=== PATIENT | male | born 1955 | race Caucasian/White ===

== ENCOUNTER 2017-05-01 14:59 | Emergency (ER) | payer OTHER, MEDICARE ==
[~2017-05-01] VITALS: Ht 175.3 cm; Wt 110.2 kg
[2017-05-01 15:08] VITALS: BP 137/92
--- NOTE | 2017-05-01 16:00 | RADIOLOGY REPORT ---
EXAMINATION: XR CHEST CLINICAL INFORMATION: Productive cough for one month. COMPARISON: Chest x-ray 07/02/2013. PET/CT exam of 11/21/2016 TECHNIQUE: 2 views of the chest were obtained. FINDINGS: No acute abnormality. No pulmonary vascular congestion. No infiltrate or pleural effusion. Heart size is normal. Cardiomediastinal contours are normal. There is no pleural effusion. Multilevel degenerative spondylosis of dorsal spine. IMPRESSION: No acute abnormality of the chest.
--- NOTE | 2017-05-01 19:09 | ED INFLUENZA/URI COMPLAINT ---
History of Present Illness General Chief Complaint: Upper Respiratory Sx/Fever Stated Complaint: URI Source: patient Exam Limitations: no limitations Vital Signs & Intake/Output Vital Signs & Intake/Output Vital Signs Date Time Temp Pulse Resp B/P B/P Pulse O2 O2 Flow FiO2 Mean Ox Delivery Rate 05/01 1508 97.1 96 18 137/92 94 Room Air Allergies Coded Allergies: MDX - Prednisone (PREDNISONE) (Intermediate, "CRAZY/ANXIOUS" 05/28/12) MDX - Cat Hair Extract (Cat Hair Extract) (CATS 05/28/12) Reconcile Medications Codeine Phosphate/Guaifenesi (Cheratussin AC Syrup) 10 MG-100 MG/5 ML LIQUID 5 ML PO BID PRN COUGH Triage Note: PT TO ER C/C INTERMITTENT PRODUCTIVE COUGH X 3 MONTHS. DENIES C/P. AFEBRILE Triage Nurses Notes Reviewed? yes Onset: Gradual Duration: week(s): Timing: recent history Severity: moderate HPI: 62yo male with hx of lymphoma presents to ED complaining of cough, congestion, URI symptoms x 3 months. Patient reports that cough is intermittently productive of clear/yellow sputum. Patient reports that sometimes she has coughing fits, these coughing fits keep him up at night. Patient also notes intermittent dyspnea, worse with exertion. Patient reports daily prophylactic antibiotic use for the past several months however does not know the name of his abx. The patient denies recent changes in weight, night sweats, fevers, abdominal pain, chest pain, nausea, vomiting, diarrhea, chills. (Kalpana Melton) Past History Travel History Traveled to [place] past 21 day No Medical History Any Pertinent Medical History? see below for history Cardiovascular: hypertension Gastrointestinal: peptic ulcer disease Musculoskeletal: BACK PAIN Cancer(s): non-hodgkin lymphoma Pneumonia Vaccine: 04/20/10 Influenza Vaccine: 04/20/11 Surgical History Surgical History: non-contributory Psychosocial History Who do you live with Spouse Services at Home None What is your primary language Pakistani Tobacco Use: Never used Family History Hx Contributory? No (Kalpana Melton) Review of Systems Review of Systems Constitutional: Reports: no symptoms. EENTM: Reports: see HPI. Respiratory: Reports: see HPI. Cardiovascular: Reports: no symptoms. GI: Reports: no symptoms. Genitourinary: Reports: no symptoms. Musculoskeletal: Reports: no symptoms. Skin: Reports: no symptoms. Neurological/Psychological: Reports: no symptoms. Hematologic/Endocrine: Reports: no symptoms. Immunologic/Allergic: Reports: no symptoms. All Other Systems: Reviewed and Negative (Kalpana Melton) Physical Exam Physical Exam General Appearance: well developed/nourished, no apparent distress, alert, awake Head: atraumatic, normal appearance Eyes: Bilateral: normal appearance. Ears, Nose, Throat: normal ENT inspection, moist mucous membrane, hearing grossly normal, pharynx normal Neck: normal inspection, supple, full range of motion Respiratory: normal breath sounds, no respiratory distress, lungs clear Cardiovascular: regular rate/rhythm Back: normal inspection, normal range of motion Extremities: normal inspection, normal range of motion Neurologic/Psych: awake, alert, oriented x 3 Skin: intact, normal color, warm/dry Core Measures Sepsis Present: No Sepsis Focused Exam Completed? No (Kalpana Melton) Progress Differential Diagnosis: influenza, neutropenia, otitis, pneumonia, pharyngitis, sinusitis, bronchitis Plan of Care: Patient's chest x-ray is within normal limits, these findings were discussed with the patient. The patient is upset about 2 hour wait time and that he was seen and evaluated in the hallway. Patient was offered blood work for further evaluation however he declines at this time. Patient reports that his pharmacist sent him here to the hospital to receive Rocephin. The patient was informed it was not recommended to give him IV or IM antibiotics without first obtaining labs for further assessment. Patient states he does not want to wait any longer and will go home without further workup. His physical exam is benign , breath sounds clear bilaterally, no physical exam findings to suggest acute infection, vital signs are stable. It was recommended the patient follow up with his primary care physician as well as his cancer specialist. Steroids were offered however patient declines as steroids "make him crazy". Patient left the ED prior to receiving discharge paperwork. Diagnostic Imaging: Viewed by Me: Radiology Read. Discussed w/RAD: Radiology Read. Radiology Impression: PATIENT: FREDDY VIZCARRA PRESENT AGE: 62 PATIENT ACCOUNT NO: [id number] : 53 LOCATION: [facility] ORDERING PHYSICIAN: Casper Wallace DO (TBS) SERVICE DATE: 05/01/17 EXAM TYPE: RAD - XRY-CHEST XRAY, TWO VIEWS EXAMINATION: XR CHEST CLINICAL INFORMATION : Productive cough for one month. COMPARISON: Chest x-ray 07/02/2013. PET/CT exam of 11/21/2016 TECHNIQUE: 2 views of the chest were obtained. FINDINGS: No acute abnormality. No pulmonary vascular congestion. No infiltrate or pleural effusion. Heart size is normal. Cardiomediastinal contours are normal. There is no pleural effusion. Multilevel degenerative spondylosis of dorsal spine. IMPRESSION: No acute abnormality of the chest. DICTATED BY: Ruel Mi MD DATE /TIME DICTATED:05/01/171550 LOCK TENDER:LORIE DATE/TIME TRANSCRIBED: 05/01/171550 CONFIDENTIAL, DO NOT COPY WITHOUT APPROPRIATE AUTHORIZATION. < Electronically signed in Other Vendor System> SIGNED BY: Ruel Mi MD 1599 Initial ED EKG: none (Magda GARAY,Kalpaan Calles) Departure Departure Disposition: HOME OR SELF CARE Condition: Stable Clinical Impression Primary Impression: Viral upper respiratory illness Secondary Impressions: Cough, Nasal congestion Referrals: Rod Bro MD (PCP/Family) Additional Instructions: Take cough suppressant as prescribed. Continue antibiotics as prescribed by her specialist. Follow-up with your primary care doctor in your specialist this week. Return to the emergency Department with any worsening symptoms or other concerns. Please note that there might be incidental findings in your evaluation that are unrelated to the current emergency department visit. Please notify your primary care doctor about this emergency department visit in order to obtain and review all of the testing performed so that these incidental findings can be monitored as needed. If you had an x-ray performed, please understand that some fractures may not be seen on the initial set of x-rays. If your symptoms persist you might need a repeat set of x-rays to check for such a fracture. If you had a laceration evaluated, please understand that foreign bodies such as glass or wood may not be visible to the naked eye or on plain x-rays. If the wound becomes red, swollen, increasingly more painful or if there is any drainage from the wound, please have it reevaluated by a physician for the possibility of a retained foreign body. If you're unable to follow up as outlined in the discharge instructions please return to the emergency department. Thank you for choosing the [facility] Emergency Department for your care. It was a pleasure to serve you today. Departure Forms: Customer Survey General Discharge Information Prescriptions: Current Visit Scripts Codeine Phosphate/Guaifenesi (Cheratussin AC Syrup) 5 ML PO BID PRN COUGH #100 ML (Magda GARAY,Kalpana Calles) PA/NEWS PRODUCTION ASSISTANT Co-Sign Statement Statement: ED Attending supervision documentation- [] I saw and evaluated the patient. I have also reviewed all the pertinent lab results and diagnostic results. I agree with the findings and the plan of care as documented in the PA's/NEWS PRODUCTION ASSISTANT's documentation. [X] I have reviewed the ED Record and agree with the PA's/NEWS PRODUCTION ASSISTANT's documentation. [] Additions or exceptions (if any) to the PAs/NEWS PRODUCTION ASSISTANT's note and plan are summarized below: [] (Obed KULKARNI,Inessa)
[2017-05-01] MEDS ORDERED: CHERATUSSIN AC118 M1 PO (19:15)
== END 2017-05-01 19:00 ==
LOC: ERH 14:59
DX: J06.9 Acute upper respiratory infection, unspecified (principal)
CPT/HCPCS: 71046

== ENCOUNTER 2017-06-14 15:28 | Inpatient (IN) | payer OTHER, MEDICARE ==
[~2017-06-14] VITALS: Ht 175.3 cm; Wt 109.8 kg
[~2017-06-14 15:28] MED LIST: CHERATUSSIN AC118 M1 PO
[2017-06-14 16:01] LABS: ABSOLUTE BASOPHIL COUNT 0 /CUMM (0.0-0.2); ABSOLUTE EOSINOPHIL COUNT 0.2 /CUMM (0.0-0.7); ABSOLUTE GRANULOCYTE CT 5.2 /CUMM (1.4-6.5); ABSOLUTE LYMPH COUNT 2.7 /CUMM (1.2-3.4); ABSOLUTE MONOCYTE COUNT 0.5 /CUMM (0.10-0.60); BASOPHIL % 0.1 % (0.0-2.0); EOSINOPHIL % 1.8 % (0-5); GRANULOCYTE % 60.6 % (42.2-75.2); HEMATOCRIT 39.7 % (42-52); MEAN CORPUSCULAR HGB 30.4 PG (27.0-31.0); MEAN CORPUSCULAR HGB CONC 32.9 G/DL (33.0-37.0); MEAN CORPUSCULAR VOLUME 92.5 FL (80.0-94.0); MEAN PLATELET VOLUME 7.3 FL (7.4-10.4); PLATELET COUNT 232 /CUMM (130-400); RBC DISTRIBUTION WIDTH 15.5 % (11.5-14.5); WHITE BLOOD CELL COUNT 8.6 /CUMM (4.8-10.8)
--- NOTE | 2017-06-14 18:24 | ED GI/GU/ABDOMINAL COMPLAINT ---
History of Present Illness General Chief Complaint: Abdominal Pain/Flank Pain Stated Complaint: CHRONS DISEASE "I HAVE A BLOCKAGE", +V Source: patient, old records Exam Limitations: no limitations Vital Signs & Intake/Output Vital Signs & Intake/Output Vital Signs Date Time Temp Pulse Resp B/P B/P Pulse O2 O2 Flow FiO2 Mean Ox Delivery Rate 06/143 97.8 67 20 128/70 99 06/14 2205 98.4 68 18 126/75 98 Room Air 06/14 2049 95 Room Air 06/14 1924 18 95 Nasal 2.0L Cannula 06/14 1901 99.1 102 18 133/80 94 Room Air 06/14 1547 96.4 94 15 132/82 96 Room Air Room Air Allergies Coded Allergies: prednisone (Intermediate, "CRAZY/ANXIOUS" 06/14/17) Triage Note: PT TO ED FOR C/C OF DIFFUSE LOWER ABD PAIN X 2 DAYS WITH VOMITING X 6 TIMES TODAY AND LAST NIGHT. -DIARRHEA. Triage Nurses Notes Reviewed? yes Onset: Abrupt Duration: day(s): (3-4), constant, continues in ED Timing: recent history Quality/Severity: cramping Severity Numbers: 8 Location: generalized abdomen Radiation: no radiation Activities at Onset: none Prior Abdominal Problems: similar symptoms Past Sexual History: Unobtainable at this time No Modifying Factors: none Modifying Factors: Worsens With: movement, palpation. Associated Symptoms: abdominal pain, nausea/vomiting HPI: 62-year-old male past medical history of chronic back pain, Crohn's disease, multiple abdominal surgeries, multiple back surgeries, hypertension presents for evaluation of abdominal pain nausea and vomiting. Patient states symptoms started 3 or 4 days ago and have been getting worse. Pain is located diffusely in his abdomen. It is examined is distended. He also reports nausea multiple doses of vomiting decreased appetite. He HAS been having difficulty taking his medications due to vomiting. His last bowel movement was greater in 3 days ago. He is not passing gas. No chest pain shortness of breath fever. He has been treated with antibiotics for possible pneumonia on several occasions in the past few months. He does report a cough. No fever shortness of breath hemoptysis or lower extremity edema. (Luis Cevallos) Reconcile Medications Clonazepam 2 MG TABLET 1 TAB PO BID ANXIETY (Reported) Coconut Oil (Unknown Strength) CAPSULE (Unknown Dose) PO DAILY SUPPLEMENT ( Reported) Cyanocobalamin (Vitamin B-12) (Cyanocobalamin Injection) 1,000 MCG/ML VIAL 1 ML IM Q30D SUPPLEMENT (Reported) Fentanyl 100 MCG/HOUR PATCH.TD72 1 PAT TOP Q3D PAIN (Reported) Multiple Vitamin (Multivitamins) 1 EACH TABLET 1 TAB PO DAILY SUPPLEMENT ( Reported) [place]-3/Dha/Epa/Fish Oil (Fish Oil 1,000 MG Softgel) (Unknown Strength) CAPSULE (Unknown Dose) PO DAILY SUPPLEMENT (Reported) Oxycodone HCl 30 MG TABLET 90 MG PO 4XDAILY PAIN (Reported) Turmeric Root Extract (Turmeric) (Unknown Strength) CAPSULE (Unknown Dose) PO DAILY SUPPLEMENT (Reported) (Jaci KULKARNI,Rigoberto) Past History Travel History Traveled to [place] past 21 day No Medical History Any Pertinent Medical History? see below for history Cardiovascular: hypertension Gastrointestinal: peptic ulcer disease, CROHNS DISEASE Musculoskeletal: BACK PAIN Cancer(s): non-hodgkin lymphoma Surgical History Surgical History: non-contributory Psychosocial History Who do you live with Spouse Services at Home None What is your primary language Yi Tobacco Use: Never used ETOH Use: denies use Illicit Drug Use: denies illicit drug use Family History Hx Contributory? No (Luis Cevallos) Review of Systems Review of Systems Constitutional: Reports: no symptoms. EENTM: Reports: no symptoms. Respiratory: Reports: no symptoms. Cardiovascular: Reports: no symptoms. GI: Reports: see HPI, abdominal pain, bloating, distention, nausea, changes in stool. Genitourinary: Reports: no symptoms. Musculoskeletal: Reports: see HPI, back pain, muscle pain. Skin: Reports: no symptoms. Neurological/Psychological: Reports: no symptoms. Hematologic/Endocrine: Reports: no symptoms. Immunologic/Allergic: Reports: no symptoms. All Other Systems: Reviewed and Negative (Luis Cevallos) Physical Exam Physical Exam General Appearance: well developed/nourished, no apparent distress, alert, awake , obese Head: atraumatic, normal appearance Eyes: Bilateral: normal appearance, PERRL, EOMI. Ears, Nose, Throat, Mouth: hearing grossly normal, dental injury, moist mucous membrane Neck: normal inspection, supple, full range of motion Respiratory: normal breath sounds, chest non-tender, no respiratory distress, lungs clear Cardiovascular: regular rate/rhythm, normal peripheral pulses Peripheral Pulses: 2+ radial (R), 2+ radial (L) Gastrointestinal: soft, no organomegaly, abnormal bowel sounds, distention, tenderness (DIFFUSE), HYPERACTIVE BOWEL SOUNDS. tHERE ARE MULTIPLE HEALED SURGICAL SCARS OVER THE ABDOMEN. Back: normal inspection, normal range of motion, no vertebral tenderness Extremities: normal range of motion Neurologic/Psych: no motor/sensory deficits, awake, alert, oriented x 3, normal gait Skin: intact, normal color, warm/dry Core Measures ACS in differential dx? No Sepsis Present: No Sepsis Focused Exam Completed? No (Jono GARAY,Luis) Progress Differential Diagnosis: AAA, appendicitis, biliary colic, bowel obstruction, colon cancer, cholecystitis, diverticulitis, gastritis, hernia, ischemic bowel, inflamm bowel dis, pancreatitis, peptic ulcer, PUD/GERD, perforated viscous, SBO Plan of Care: Orders Procedure Date/time Status Nothing by Mouth 06/15 B Active CBC WITHOUT DIFFERENTIAL 06/15 06 Active BASIC ELECTROLYTES PLUS BUN&CR 06/15 06 Active TRC EVALUATION (GEN) 06/14 2045 Active Pathway - chart 06/14 2045 Active Patient Data 06/14 2045 Active Admit to inpatient 06/14 204 Active Add-on Test (ER Only) 06/14 2030 Active EKG 06/14 2030 Active NGT 06/14 1854 Active Add-on Test (ER Only) 06/14 1824 Active TROPONIN LEVEL 06/14 1554 Complete LACTIC ACID 06/14 1554 Complete LIPASE 06/14 1550 Complete COMPREHENSIVE METABOLIC PANEL 06/14 1550 Complete CBC WITHOUT DIFFERENTIAL 06/14 1550 Complete Admit to inpatient 06/14 UNK Active VTE Mechanical Prophylaxis 06/14 UNK Active Vital Signs 06/14 UNK Active NGT 06/14 UNK Active Intake & Output 06/14 UNK Active Activity/Ambulation 06/14 UNK Active Current Medications Sig/Mellisa Start time Last Medication Dose Stop Time Status Admin Pantoprazole Sodium 40 MG DAILY 06/15 1000 AC (Protonix) Morphine Sulfate 6 MG Q4 PRN 06/14 2243 AC (MORPHINE SULFATE) Heparin Sodium 5,000 UNIT Q8 06/14 2200 AC (Porcine) Acetaminophen 1,000 MG Q6H 06/14 2045 AC 06/14 (Ofirmev) 06/15 1459 2055 N/A 1 UNIT (No Carrier) Dextrose/Sodium 1,000 ML .Q8H 06/14 2044 AC 06/14 Chloride 2110 (D5W-1/2 Normal Saline 1000ML) Fentanyl Citrate 100 MCG Q72H 06/14 2044 AC 06/14 (Duragesic) 2113 Lorazepam 1 MG Q4P PRN 06/14 2044 AC (Ativan) Morphine Sulfate 8 MG Q4-6 PRN PRN 06/14 2044 AC (MORPHINE SULFATE) Ondansetron HCl 4 MG Q8P PRN 06/14 2044 AC (Zofran) Phenol 2 SPRAY Q2P PRN 06/14 2044 AC (Chloraseptic (Phenaseptic) [place]) Promethazine HCl 12.5 MG Q6-PRN PRN 06/14 2044 AC (Phenergen) 06/22 2043 Hydromorphone HCl 1 MG ONCE ONE 06/14 1844 CAN (Dilaudid) 06/14 1845 Laboratory Tests 06/14/17 1554: Anion Gap 17 H, Estimated GFR 56 L, BUN/Creatinine Ratio 14.6, Glucose 115 H, Lactic Acid 1.9, Calcium 9.5, Total Bilirubin 0.9, AST 27, ALT 31, Alkaline Phosphatase 131 H, Troponin I 0.05, Total Protein 8.2, Albumin 4.7, Globulin 3.5, Albumin/Globulin Ratio 1.3, Lipase 81, CBC w Diff NO MAN DIFF REQ, RBC 4.30 L, MCV 92.5, MCH 30.4, MCHC 32.9 L, RDW 15.5 H, MPV 7.3 L, Gran % 60.6, Lymphocytes % 32.0, Monocytes % 5.5, Eosinophils % 1.8, Basophils % 0.1, Absolute Granulocytes 5.2, Absolute Lymphocytes 2.7, Absolute Monocytes 0.5, Absolute Eosinophils 0.2, Absolute Basophils 0 Patient seen and evaluated. He has a long history of abdominal surgeries and chronic pain. He takes very high doses of opioids. He is not passing gas he is vomiting does not represent last bowel movement. Basic blood work that showed any significant acute abnormalities. CT scan shows a small bowel obstruction and possible right lower lobe pneumonia. Case was discussed with Dr. Tanner herrera from surgery. He instructed that an NG tube should be placed. Patient was given IV morphine and IV Zofran and a liter of normal saline. Surgery will be admitting the patient for small bowel obstruction. They requested a medicine consult. Case discussed with Dr. Davis [facility]. Case discussed with Dr. POWERS HE AGREES. Diagnostic Imaging: Viewed by Me: CT Scan. Discussed w/RAD: CT Scan. Radiology Impression: PATIENT: FREDDY VIZCARRA PRESENT AGE: 62 PATIENT ACCOUNT NO: [id number] : 53 LOCATION: [facility] ORDERING PHYSICIAN: Pedro GARAY SERVICE DATE: 06/14/17 EXAM TYPE: CAT - CT ABD & PELVIS W/O IV CONTRAS EXAMINATION: CT ABDOMEN AND PELVIS WITHOUT CONTRAST CLINICAL INFORMATION: Abdominal pain. COMPARISON: 11/03/2013. TECHNIQUE : Contiguous axial thin section helical images of the abdomen and pelvis were performed without oral or IV contrast. The data set was reformatted in the coronal and sagittal planes and reviewed on an independent workstation. DLP: 646 mGy-cm. FINDINGS: There is a wedge-shaped opacity within the lateral right lung base along with mild bronchial wall thickening and bronchiectasis. The visualized lung bases are otherwise clear. The visualized portions of the heart are unremarkable. The liver is of normal size and attenuation without concerning focal lesions nor intrahepatic biliary ductal dilation. A low-attenuation lesion within the left lobe is stable. A normal gallbladder is identified. There is no wall thickening or discernible pericholecystic fluid. The spleen, pancreas, adrenal glands are unremarkable. Both kidneys are of normal size and attenuation without hydronephrosis. There are punctate peripheral nonobstructive renal calculi bilaterally. There is no abdominal free fluid. There is neither mesenteric nor retroperitoneal lymphadenopathy. There are numerous air-fluid levels within moderately dilated loops of small bowel. There is a mid transition zone. There are surgical chain sutures noted within the distal ileum and cecal region. There is no pelvic free fluid. The urinary bladder is unremarkable. There is neither pelvic nor inguinal lymphadenopathy. Bone windows: Neither sclerotic nor lytic bone lesions are identified. An intervertebral disc spacer at L4/L5 is intact. There is disc height loss at L5/S1. Partially visualized is a left femoral prosthesis. IMPRESSION: Mid small bowel obstruction. No abdominal or pelvic free fluid. Right lower lobe infiltrate. Recommendation is for a followup chest series to be obtained following treatment and/or resolution of symptoms to assure resolution of this appearance. DICTATED BY: Taiwo Cruz MD DATE/TIME DICTATED:06/14/171811 STEMMING MACHINE OPERATOR:LORIE DATE/TIME TRANSCRIBED:06/14/171811 CONFIDENTIAL, DO NOT COPY WITHOUT APPROPRIATE AUTHORIZATION. Initial ED EKG: none (Luis Cevallos) Departure Departure Disposition: STILL A PATIENT Condition: Stable Clinical Impression Primary Impression: SBO (small bowel obstruction) Referrals: Dieudonne KULKARNI,Rod Parham (PCP/Family) Departure Forms: Customer Survey General Discharge Information Admission Note Spoke With: Moshe KULKARNI,Michele NMoraima Documentation of Exam: Documentation of any treatments & extenuating circumstances including Concerns Regarding Discharge (functional status, medication knowledge or non-compliance, living conditions, etc.) that warrant an admission rather than observation: [IV fluids, IV pain meds, nothing by mouth, NG tube, surgical consult, medicine consult, serial labs, serial abdominal images] (Luis Cevallos) PA/SECURITY PUBLIC SAFETY OFFICER Co-Sign Statement Statement: ED Attending supervision documentation- x I saw and evaluated the patient. I have also reviewed all the pertinent lab results and diagnostic results. I agree with the findings and the plan of care as documented in the PA's/SECURITY PUBLIC SAFETY OFFICER's documentation. Abd pain, n/v, distension: SBO [] I have reviewed the ED Record and agree with the PA's/SECURITY PUBLIC SAFETY OFFICER's documentation. [] Additions or exceptions (if any) to the PAs/SECURITY PUBLIC SAFETY OFFICER's note and plan are summarized below: [] (Jaci KULKARNI,Rigoberto)
[2017-06-14] MEDS ORDERED: OXYCODONE HCL30 M1 PO (20:31)
[2017-06-14] MEDS ORDERED: CLONAZEPAM2 M2 PO (20:31)
[2017-06-14] MEDS ORDERED: FENTANYL1 EAC5 TOP (20:32)
[2017-06-14] MEDS ORDERED: CYANOCOBAL1000 MCG/2 IM (20:34)
[2017-06-14] MEDS ORDERED: MULTIVITAMINS1 EAC9 PO (20:34)
[2017-06-14] MEDS ORDERED: TURMERIC500 M2 PO (20:35)
[2017-06-14] MEDS ORDERED: FISH OIL 1,0001 EAC2 PO (20:35)
[2017-06-14] MEDS ORDERED: COCONUT OIL1000 MG PO (20:35)
[2017-06-14] MEDS ORDERED: VITAMIN B-121000 MC3 PO (20:35)
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
--- NOTE | 2017-06-14 21:20 | Cons- Medical ---
[facility] General Information and HPI Consulting Request Date of Consult: 06/14/17 Requested By: Moshe KULKARNI,Michele Alvarado Reason for Consult: To assess possible pneumonia Source of Information: patient, old records Exam Limitations: no limitations History of Present Illness: ia a 62 year-old male with a history of non-hodgkins lymphoma status post chemotherapy with chemotherapy port just removed recently, status post PET scan which showed that his lymphoma is stable, history of crohns disease status post 35 inch resection and placement of an ileostomy bag which is reverted, history of chronic pain on high-dose opioid, history of spinal fusion surgery, history of hip replacement, inguinal hernia repair, foot drop, anxiety who presents with a 5 day history of gradually worsening abdominal pain with associated nausea, vomiting, inability to pass flatus or move his bowels in 3 days, found to have mid intraspinal obstruction on the CAT scan. Medical consult was placed for a concern of a wedge-shaped opacity within the lateral right lung base along with mild bronchial wall thickening and bronchiectasis. History was obtained from the patient and his daughter, when he had PET scan done after the removal of the chemotherapy port he was found to have pneumonia and was treated with a course of antibiotic (moxifloxacin) however he developed after wards symptoms of bronchitis and he was started on Bactrim by his PCP, his last dose of antibiotics supposed to be tomorrow however he reports that his symptoms is completely resolved and he feels that he improved with antibiotic therapy. He denies any sore throat, cough, sputum production, fever, chills, malaise, chest pain, shortness of breath. His only concern was the pain in his lower abdomen, nausea and vomiting that he had. Allergies/Medications Allergies: Coded Allergies: prednisone (Intermediate, "CRAZY/ANXIOUS" 06/14/17) Home Med List: Clonazepam 2 MG TABLET 1 TAB PO BID ANXIETY (Reported) Coconut Oil (Unknown Strength) CAPSULE (Unknown Dose) PO DAILY SUPPLEMENT ( Reported) Cyanocobalamin (Vitamin B-12) (Cyanocobalamin Injection) 1,000 MCG/ML VIAL 1 ML IM Q30D SUPPLEMENT (Reported) Fentanyl 100 MCG/HOUR PATCH.TD72 1 PAT TOP Q3D PAIN (Reported) Multiple Vitamin (Multivitamins) 1 EACH TABLET 1 TAB PO DAILY SUPPLEMENT ( Reported) [place]-3/Dha/Epa/Fish Oil (Fish Oil 1,000 MG Softgel) (Unknown Strength) CAPSULE (Unknown Dose) PO DAILY SUPPLEMENT (Reported) Oxycodone HCl 30 MG TABLET 90 MG PO 4XDAILY PAIN (Reported) Turmeric Root Extract (Turmeric) (Unknown Strength) CAPSULE (Unknown Dose) PO DAILY SUPPLEMENT (Reported) Review of Systems Review of Systems Constitutional: Reports: no symptoms. EENTM: Reports: no symptoms. Cardiovascular: Reports: no symptoms. Respiratory: Reports: no symptoms. GI: Reports: abdominal pain, constipation, nausea, vomiting. Genitourinary: Reports: no symptoms. Musculoskeletal: Reports: back pain. Skin: Reports: no symptoms. Neurological/Psychological: Reports: no symptoms. Hematologic/Endocrine: Reports: no symptoms. Immunologic/Allergic: Reports: no symptoms. All Other Systems: Reviewed and Negative Past History Travel History Traveled to [place] past 21 day No Medical History Cardiovascular: hypertension Gastrointestinal: peptic ulcer disease, CROHNS DISEASE Musculoskeletal: BACK PAIN Cancer(s): non-hodgkin lymphoma Surgical History Surgical History: colon resection, hernia repair-inguinal Psychosocial History Services at Home: None ETOH Use: denies use Illicit Drug Use: denies illicit drug use Exam & Diagnostic Data Last 24 Hrs of Vital Signs/I&O Vital Signs Date Time Temp Pulse Resp B/P B/P Pulse O2 O2 Flow FiO2 Mean Ox Delivery Rate 06/14 2204 98.4 68 18 126/75 98 Room Air 06/14 2049 95 Room Air 06/14 1924 18 95 Nasal 2.0L Cannula 06/14 1901 99.1 102 18 133/80 94 Room Air 06/14 1547 96.4 94 15 132/82 96 Room Air Room Air Intake & Output 06/14 1600 06/14 0800 06/14 0000 Intake Total Output Total Balance Patient 240 lb Weight Weight Reported by Patient Measurement Method Physical Exam General Appearance: well developed/nourished, alert, awake, anxious, moderate distress Head: atraumatic, normal appearance Neck: normal inspection, supple, full range of motion Respiratory: normal breath sounds, chest non-tender, no respiratory distress, lungs clear Cardiovascular: regular rate/rhythm, normal peripheral pulses Peripheral Pulses: 2+ dorsalis pedis (R), 2+ dorsalis pedis (L) Gastrointestinal: soft, distention, tenderness Last 24 Hrs of Labs/Peter: Laboratory Tests 06/14/17 1554: Anion Gap 17 H, Estimated GFR 56 L, BUN/Creatinine Ratio 14.6, Glucose 115 H, Lactic Acid 1.9, Calcium 9.5, Total Bilirubin 0.9, AST 27, ALT 31, Alkaline Phosphatase 131 H, Troponin I 0.05, Total Protein 8.2, Albumin 4.7, Globulin 3.5, Albumin/Globulin Ratio 1.3, Lipase 81, CBC w Diff NO MAN DIFF REQ, RBC 4.30 L, MCV 92.5, MCH 30.4, MCHC 32.9 L, RDW 15.5 H, MPV 7.3 L, Gran % 60.6, Lymphocytes % 32.0, Monocytes % 5.5, Eosinophils % 1.8, Basophils % 0.1, Absolute Granulocytes 5.2, Absolute Lymphocytes 2.7, Absolute Monocytes 0.5, Absolute Eosinophils 0.2, Absolute Basophils 0 Diagnostic Data CXR Results No evidence for acute disease. Other Results CT-abdomen /pelvis: There is a wedge-shaped opacity within the lateral right lung base along with mild bronchial wall thickening and bronchiectasis. The visualized lung bases are otherwise clear. The visualized portions of the heart are unremarkable. Mid small bowel obstruction. No abdominal or pelvic free fluid. Right lower lobe infiltrate. Recommendation is for a followup chest series to be obtained following treatment and/or resolution of symptoms to assure resolution of this appearance. Assessment/Plan Assessment/Plan ia a 62 year-old male with a history of non-hodgkins lymphoma status post chemotherapy with chemotherapy port just removed recently, status post PET scan which showed that his lymphoma is stable, history of crohns disease status post 35 inch resection and placement of an ileostomy bag which is reverted, history of chronic pain on high-dose opioid, history of spinal fusion surgery, history of hip replacement, inguinal hernia repair, foot drop, anxiety who presents with a 5 day history of gradually worsening abdominal pain with associated nausea, vomiting, inability to pass flatus or move his bowels in 3 days, found to have mid intraspinal obstruction on the CAT scan. Medical consult was placed for a concern of a wedge-shaped opacity within the lateral right lung base along with mild bronchial wall thickening and bronchiectasis. His vitals is pertinent to tachycardic initially which could be related to the pain and now his heart rate back to normal, other vitals stable, labs showed no leukocytosis, creatinine 1.3, glucose 115, alkaline phosphatase 131 Assessment: #Mid intestinal obstruction #History of chronic pain on opioid #History of Crohn's disease #History of non-Hodgkin lymphoma/stable #Recently treated pneumonia/bronchitis currently resolved Plan: -Patient recently treated for bronchitis his last dose of antibiotic is tomorrow however, he denies any active cough or phlegm production, no leukocytosis on his labs and he doesn't have any fever or chills, opacity on CAT scan needs time to resolve. No indication for antibiotic treatment in the meantime, if he spikes fever or he had leukocytosis repeat imaging and send sputum culture if any. -Management of intestinal obstruction and pain control per surgical team Consult Acknowledgment - Thank you for your consult request. Laurita Miller 06/15/17 0319: Assessment/Plan Consult Acknowledgment - Thank you for your consult request. Attending MD Review Statement Attending Statement Attending MD Statement: examined this patient, discuss w/resident/PA/TELEVISION TECHNICIAN, agreed w/resident/PA/TELEVISION TECHNICIAN, discussed with family, reviewed EMR data (avail), reviewed images, amended to note Attending Assessment/Plan: CC: Evaluation for pneumonia PMH: Crohn's disease S/P colectomy, ileostomy followed by reanastomosis, non- Hodgkin's lymphoma S/P chemotherapy, chronic back pain S/P surgery resulting in nerve damage and left foot drop, hip replacement surgery, peptic ulcer disease, hypertension Patient came to ER for 2 day duration of diffuse abdominal pain, and one-day history of nausea and several vomitings. Patient did not have bowel movement and last for 5 days and decreased flatus. In ER patient is found to have small bowel obstruction and getting admitted under surgical service for conservative management. Meanwhile in investigation patient is found to have right lower lobe infiltrate so we were asked for evaluation of pneumonia. According to patient he underwent PET scan approximately 3-4 weeks back, at that time he was found to have a lung infiltrate and was treated for pneumonia with clarithromycin. Patient also had cough and expectoration at that time. He symptomatically improved for some time but later on started to have worsening cough and sputum production, fever and chills and was treated again with Bactrim, currently on Bactrim completing tomorrow. While on Bactrim his symptoms markedly improved and currently denies any cough, sputum production, fever, chills, dizziness, aspiration, choking, chest pain, chest tightness, respiratory discomfort. Patient is on significant opiate regimen for chronic pain. He is currently not on treatment for Crohn's. Vitals: Tmax 99.1, pulse 102, RR 18, blood pressure 133/80, saturating 96% on room air On exam: A O 3, cooperative, no acute distress, NG tube under suction, neck supple, JVD normal, no lymphadenopathy, mucosa moist, left foot drop, no dependent edema, no obvious skin rashes or inflammation CVS: S1-S2, RRR. RS: Clear to auscultate bilaterally. Abdomen: Soft, distended, tender, no guarding or rigidity, bowel sounds increased. CT abdomen and pelvis without IV contrast: Mid small bowel obstruction. No abdominal or pelvic free fluid. Right lower lobe infiltrate. Recommendation is for a followup chest series to be obtained following treatment and/or resolution of symptoms to assure resolution of this appearance. Assessment and plan 62-year-old male with extensive past medical history as mentioned above presented in ER for lower abdominal pain, nausea and vomiting and is found to have small bowel obstruction. Patient is being managed consultatively under surgical service. Meanwhile he is found to have right lower lobe infiltrate with suspicion of pneumonia. Patient is recently diagnosed to have pneumonia 3 weeks back, completed treatment for the same and currently asymptomatic. He denies any cough, expectoration, chest pain, chest tightness, respiratory difficulty, fever , chills. Patient is a febrile throughout and does not have significant leukocytosis. At this point he would suggest to continue his Bactrim to finish the duration of antibiotics and thereafter no further treatment is required for pneumonia at this point. We will follow along. Pain management according to surgical team.
[2017-06-14 22:53] VITALS: BP 128/70
[2017-06-15 06:20] VITALS: BP 112/70
--- NOTE | 2017-06-15 08:48 | PN- General Surgery ---
Subjective Subjective: "Can I get more pain meds?" Admitted overnight for SBO. Initial NGT placed with 500 ml bilious output. Patient inadvertantly pulled out overnight. No further nausea/vomiting. No flatus or BM. Yet to ambulate. Voiding spontaneously. Objective Vital Signs and I&Os Vital Signs Date Time Temp Pulse Resp B/P B/P Pulse O2 O2 Flow FiO2 Mean Ox Delivery Rate 06/16 619 98.0 60 20 112/70 98 Nasal Cannula 06/14 2299 98 Nasal 2.0L Cannula 06/14 2252 97.8 67 20 128/70 99 06/14 2204 98.4 68 18 126/75 98 Room Air 06/14 204 95 Room Air 06/14 1924 18 95 Nasal 2.0L Cannula 06/14 190 99.1 102 18 133/80 94 Room Air 06/14 1547 96.4 94 15 132/82 96 Room Air Room Air Intake & Output 06/15 1600 06/15 0800 06/15 0000 06/14 1600 06/14 0800 06/14 0000 Intake Total 200 Output Total 400 100 Balance -200 -100 Intake, IV 200 Output, 100 Gastric Drainage Output, Urine 400 Patient 243 lb 240 lb Weight Weight Reported by Patient Measurement Method Physical Exam: Gen: AAOx3 in NAD Cor: S1+S2+ Lungs: CTA golden Abd: midline incision well healed. Tender diffusely to deep palpation. No tympany. Ext: trace edema to golden lower extremities. Palpable DP pulses. Feet warm. Current Medications: Current Medications Sig/Mellisa Start time Last Medication Dose Route Stop Time Status Admin Acetaminophen 0 .STK-MED ONE 06/14 2056 DC IV Acetaminophen 1,000 MG Q6H 06/14 2044 06/15 N/A 1 UNIT IV 06/15 1459 0836 Dextrose/Sodium 1,000 ML .Q8H 06/14 2044 06/15 Chloride IV 0445 Fentanyl Citrate 100 MCG Q72H 06/14 2044 06/14 TOP 2114 Heparin Sodium 5,000 UNIT Q8 06/14 2199 AC 06/15 (Porcine) SC 0636 Hydromorphone HCl 1 MG ONCE ONE 06/14 1845 CAN IV 06/14 184 Lorazepam 1 MG Q4P PRN 06/14 2044 AC 06/14 IV 2312 Morphine Sulfate 6 MG Q4 06/15 0200 AC 06/15 IV 0636 Morphine Sulfate 6 MG Q4 PRN 06/14 2243 DC IV 06/15 0159 Morphine Sulfate 8 MG Q4-6 PRN PRN 06/14 2044 AC 06/15 IV 0446 Morphine Sulfate 6 MG Q4-6 PRN PRN 06/14 2044 DC IV Morphine Sulfate 0 .STK-MED ONE 06/15 1919 DC .ROUTE Morphine Sulfate 6 MG ONCE ONE 06/14 1914 DC 06/14 IV 06/14 Ondansetron HCl 4 MG Q8P PRN 06/14 2044 AC IV Ondansetron HCl 0 .STK-MED ONE 06/14 1918 DC .ROUTE Ondansetron HCl 4 MG ONCE ONE 06/14 1844 DC 06/14 IV 06/14 Pantoprazole Sodium 40 MG DAILY 06/15 1000 AC IV Phenol 2 SPRAY Q2P PRN 06/14 2044 AC EXT Promethazine HCl 12.5 MG Q6-PRN PRN 06/14 2044 AC IV 06/22 2043 Sodium Chloride 1,000 ML BOLUS ONE 06/14 1844 DC 06/14 IV 06/14 Results Last 48 Hours of Labs: Laboratory Tests 06/15 06/14 0655 1554 Chemistry Sodium (137 - 145 mmol/L) Pending 141 Potassium (3.5 - 5.1 mmol/L) Pending 4.7 Chloride (98 - 107 mmol/L) Pending 100 Carbon Dioxide (22 - 30 mmol/L) Pending 24 Anion Gap (5 - 16) Pending 17 H BUN (9 - 20 mg/dL) Pending 19 Creatinine (0.7 - 1.2 mg/dL) Pending 1.3 H Estimated GFR (>60 ml/min) 56 L BUN/Creatinine Ratio (7 - 25 %) Pending 14.6 Glucose (65 - 99 mg/dL) 115 H Lactic Acid (0.7 - 2.1 mmol/L) 1.9 Calcium (8.4 - 10.2 mg/dL) 9.5 Total Bilirubin (0.2 - 1.3 mg/dL) 0.9 AST (17 - 59 U/L) 27 ALT (21 - 72 U/L) 31 Alkaline Phosphatase (< 127 U/L) 131 H Troponin I (<0.11 ng/ml) 0.05 Total Protein (6.3 - 8.2 g/dL) 8.2 Albumin (3.5 - 5.0 g/dL) 4.7 Globulin (1.9 - 4.2 gm/dL) 3.5 Albumin/Globulin Ratio (1.1 - 2.2 %) 1.3 Lipase (23 - 300 U/L) 81 Hematology CBC w Diff Pending NO MAN DIFF REQ WBC (4.8 - 10.8 /CUMM) Pending 8.6 RBC (4.70 - 6.10 /CUMM) Pending 4.30 L Hgb (14.0 - 18.0 G/DL) Pending 13.1 L Hct (42 - 52 %) Pending 39.7 L MCV (80.0 - 94.0 FL) Pending 92.5 MCH (27.0 - 31.0 PG) Pending 30.4 MCHC (33.0 - 37.0 G/DL) Pending 32.9 L RDW (11.5 - 14.5 %) Pending 15.5 H Plt Count (130 - 400 /CUMM) Pending 232 MPV (7.4 - 10.4 FL) Pending 7.3 L Gran % (42.2 - 75.2 %) 60.6 Lymphocytes % (20.5 - 51.1 %) 32.0 Monocytes % (1.7 - 9.3 %) 5.5 Eosinophils % (0 - 5 %) 1.8 Basophils % (0.0 - 2.0 %) 0.1 Absolute Granulocytes (1.4 - 6.5 /CUMM) 5.2 Absolute Lymphocytes (1.2 - 3.4 /CUMM) 2.7 Absolute Monocytes (0.10 - 0.60 /CUMM) 0.5 Absolute Eosinophils (0.0 - 0.7 /CUMM) 0.2 Absolute Basophils (0.0 - 0.2 /CUMM) 0 Assessment/Plan Assessment/Plan A: HD #1 with SBO likely from adhesive disease; AVSS Plan: Continue to manage conservatively, ie NPO/IVF. Patient needs to walk with assistance- states he is a fall risk. Minimize narcotics. NGT if nauseous/vomiting. ? need for abdominal xray today. Core Measures Venous Thromboembolism VTE Risk Factors No risk factors No Mechanical VTE Prophylaxis d/t N/A MechProphylax Ordered No VTE Pharm Prophylaxis d/t NA PharmProphylax ordered
[2017-06-15 09:24] LABS: ABSOLUTE BASOPHIL COUNT 0 /CUMM (0.0-0.2); ABSOLUTE EOSINOPHIL COUNT 0.1 /CUMM (0.0-0.7); ABSOLUTE GRANULOCYTE CT 2.2 /CUMM (1.4-6.5); ABSOLUTE LYMPH COUNT 1.9 /CUMM (1.2-3.4); ABSOLUTE MONOCYTE COUNT 0.4 /CUMM (0.10-0.60); BASOPHIL % 0.3 % (0.0-2.0); GRANULOCYTE % 47.4 % (42.2-75.2); MEAN CORPUSCULAR HGB 30.8 PG (27.0-31.0); MEAN CORPUSCULAR HGB CONC 33.2 G/DL (33.0-37.0); MEAN CORPUSCULAR VOLUME 92.7 FL (80.0-94.0); MEAN PLATELET VOLUME 7.7 FL (7.4-10.4); PLATELET COUNT 148 /CUMM (130-400); RBC DISTRIBUTION WIDTH 15.4 % (11.5-14.5); WHITE BLOOD CELL COUNT 4.6 /CUMM (4.8-10.8)
[2017-06-15 10:00] LABS: HEMATOCRIT 31.5 % (42-52)
[2017-06-15 13:44] VITALS: BP 112/80
--- NOTE | 2017-06-15 15:00 | RADIOLOGY REPORT ---
EXAMINATION: XR ABDOMEN MULTIPLE VIEWS CLINICAL INDICATION: Abdominal pain COMPARISON: CT 06/14/2017 TECHNIQUE: Upright and supine radiographs of the abdomen and pelvis. FINDINGS: There are scattered air-fluid levels in upper abdominal small bowel loops. Distention appears to have decreased. Normal-appearing large bowel loops. No free intraperitoneal air. IMPRESSION: Small bowel dilatation has decreased.
--- NOTE | 2017-06-15 20:02 | History & Physical Pre-Op ---
General Information and HPI MD Statement: I have seen and personally examined FREDDY VIZCARRA and documented this H&P. The patient is a 62 year old M who presented with a patient stated chief complaint of []. Source of Information: patient, old records Exam Limitations: no limitations History of Present Illness: Chief complaint abdominal pain History of present illness: Nondiabetic nonsmoker 62 yo with history of Crohn's disease and lymphoma status post stem cell transplant, multiple abdominal surgeries chronic back pain on chronic narcotic analgesics, peptic ulcer disease and a history of bowel obstruction. He presents to our ER with what he describes as signed similar to the bowel obstructions he's had in the past though he hasn't had it for a while it started with some abdominal cramping and diarrhea he took some Imodium to control it which she's had in the past but he hasn't passed gas or moved his bowels for over 24 hours he feels distended he vomited multiple times not yet again while in the ER no fevers no sweats, no shortness of breath chest pain, no bleeding per rectum no unusual physical straining no unusual meals or large portions of high-fiber food or chewy candy or popcorn for example. He also recently had some antibiotics for pneumonia. I've reviewed the [facility]. No history of GERD, PUD, bleeding problems, heart disease or issues with anesthesia. Family history positive for Crohn's disease and his father had an DE in his 50s Allergies/Medications Allergies: Coded Allergies: prednisone (Intermediate, "CRAZY/ANXIOUS" 06/14/17) Home Med list Clonazepam 2 MG TABLET 1 TAB PO BID ANXIETY (Reported) Coconut Oil (Unknown Strength) CAPSULE (Unknown Dose) PO DAILY SUPPLEMENT ( Reported) Cyanocobalamin (Vitamin B-12) (Cyanocobalamin Injection) 1,000 MCG/ML VIAL 1 ML IM Q30D SUPPLEMENT (Reported) Fentanyl 100 MCG/HOUR PATCH.TD72 1 PAT TOP Q3D PAIN (Reported) Multiple Vitamin (Multivitamins) 1 EACH TABLET 1 TAB PO DAILY SUPPLEMENT ( Reported) [place]-3/Dha/Epa/Fish Oil (Fish Oil 1,000 MG Softgel) (Unknown Strength) CAPSULE (Unknown Dose) PO DAILY SUPPLEMENT (Reported) Oxycodone HCl 30 MG TABLET 90 MG PO 4XDAILY PAIN (Reported) Turmeric Root Extract (Turmeric) (Unknown Strength) CAPSULE (Unknown Dose) PO DAILY SUPPLEMENT (Reported) Past History Medical History Blood Transfusion Hx: Yes Cardiovascular: hypertension Respiratory: bronchitis, obstructive sleep apnea, pneumonia Gastrointestinal: peptic ulcer disease, CROHNS DISEASE Musculoskeletal: BACK PAIN Cancer(s): non-hodgkin lymphoma History of MRSA: No History of VRE: No History of CDIFF: No Isolation History: Standard Influenza Vaccine: 12/23/16 Surgical History Pertinent Surgical History: colon resection, hernia repair-inguinal Past Family/Social History Psychosocial History Services at Home None Smoking Status: Never Smoked ETOH Use: denies use Illicit Drug Use: denies illicit drug use Review of Systems Review of Systems: Constitutional: No fever, sweats or weight loss ENMT: No sore throat Cardiovascular: No chest pain, palpitations or leg swelling Respiratory: No shortness of breath, cough, or sputum or dyspnea on exertion GI: No GERD or bleeding per rectum : No dysuria or hematuria Musculoskeletal: No new muscle weakness, bone or joint pain Skin / Breast: No jaundice, rashes or itching Psychiatric: No history of drug or alcohol abuse no depression or anxiety Hematologic / lymphatic system: No problems with excessive bleeding, bruising, or blood clots Exam & Diagnostic Data Last 24 Hrs of Vital Signs/I&O I reviewed Vital Signs Date Time Temp Pulse Resp B/P B/P Pulse O2 O2 Flow FiO2 Mean Ox Delivery Rate 06/15 1600 96 Nasal 2.0L Cannula 06/15 1344 98.6 73 20 112/80 97 Nasal 2.0L Cannula 06/15 1056 Nasal 1.0L Cannula 06/15 0800 Nasal 2.0L Cannula 06/15 0620 98.0 60 20 112/70 98 Nasal Cannula 06/14 2300 98 Nasal 2.0L Cannula 06/14 2253 97.8 67 20 128/70 99 06/14 2205 98.4 68 18 126/75 98 Room Air 06/14 2049 95 Room Air I reviewed Intake & Output 06/15 1600 06/15 0800 06/15 0000 Intake Total 1010 200 Output Total 1100 400 100 Balance -90 -200 -100 Intake, IV 1000 200 Intake, Oral 10 Number 1 Bowel Movements Output, 100 Gastric Drainage Output, Urine 1100 400 Patient 243 lb Weight Physical Exam: Constitutional: pleasant, no acute distress, conversant Eyes: sclera anicteric ENMT: ears and nose atraumatic, moist mucous membranes, good dentition, no lip lesions Neck: Supple, trachea is midline, no cervical or supraclavicular adenopathy and no palpable thyromegaly Cardiovascular: S1, S2, no murmurs, no peripheral edema Respiratory: clear to auscultation with normal respiratory effort and no intercostal retractions GI: abdomen soft, mildly diffusely tender no rebound or guarding, nondistended, no palpable hepatosplenomegaly, positive bowel sounds on auscultation Extremities / lymphatics: symmetrically warm, free range of motion no peripheral edema, no cervical, supraclavicular, axillary, or inguinal adenopathy Musculoskeletal: Did not evaluate gait and station, no digital cyanosis, good muscle strength and tone no atrophy, motor grossly 5 out of 5 throughout Skin: no jaundice, no rashes warm, nondiaphoretic, no areas of erythema or induration Psychiatric: mood and affect are appropriate and alert and oriented to person place and time Last 24 Hrs of Labs/Peter: I reviewed Laboratory Tests 06/15/17 0655: Anion Gap 11, Estimated GFR > 60, BUN/Creatinine Ratio 15.0, CBC w Diff NO MAN DIFF REQ, RBC 3.40 L, MCV 92.7, MCH 30.8, MCHC 33.2, RDW 15.4 H, MPV 7.7, Gran % 47.4, Lymphocytes % 40.8, Monocytes % 8.5, Eosinophils % 3.0, Basophils % 0.3, Absolute Granulocytes 2.2, Absolute Lymphocytes 1.9, Absolute Monocytes 0.4, Absolute Eosinophils 0.1, Absolute Basophils 0 Diagnostic Data CXR Results No evidence for acute disease. Other Results CT-abdomen /pelvis: There is a wedge-shaped opacity within the lateral right lung base along with mild bronchial wall thickening and bronchiectasis. The visualized lung bases are otherwise clear. The visualized portions of the heart are unremarkable. Mid small bowel obstruction. No abdominal or pelvic free fluid. Right lower lobe infiltrate. Recommendation is for a followup chest series to be obtained following treatment and/or resolution of symptoms to assure resolution of this appearance. Assessment/Plan Assessment/Plan: Studies: I compared on PACS myself the CT scan from yesterday to the PET/CT from May 15 current film shows dilated small bowel in the mid to left upper quadrant transition but suggestive of a mid to distal at least partial obstruction no obvious free fluid Impression is small bowel obstruction presumably from adhesions from prior surgeries, often exacerbated by an unusual meal high in fiber or chewy food, or even straining, in his case however probably the Imodium coupled with the narcotic analgesics played a role. Also need to consider Crohn's flareup but the labs in the CT did not suggest this clearly. In the meantime will treat in routine nonoperative fashion with bowel rest, NG tube for decompression, (it was placed in the ER and has an inadvertently come out overnight), maintenance IV fluids and for the GI losses, monitor uo, electrolytes, vital signs, serial exams, labs, abdominal x-rays. Presently there are no peritoneal signs, if situation plateaus or worsens, especially if abdominal pain worsens in next 6-12 hours, might need urgent surgical intervention in the interest of bowel viability, but as I explained, most of the time it is not needed. As Ranked By This Provider Problem List: 1. SBO (small bowel obstruction) 2. Chronic pain 3. Crohn's disease
[2017-06-15 22:46] VITALS: BP 122/60
[2017-06-16 05:50] VITALS: BP 138/94
[2017-06-16 08:39] LABS: ABSOLUTE BASOPHIL COUNT 0 /CUMM (0.0-0.2); ABSOLUTE EOSINOPHIL COUNT 0.2 /CUMM (0.0-0.7); ABSOLUTE GRANULOCYTE CT 3.5 /CUMM (1.4-6.5); ABSOLUTE LYMPH COUNT 1.9 /CUMM (1.2-3.4); ABSOLUTE MONOCYTE COUNT 0.4 /CUMM (0.10-0.60); BASOPHIL % 0.4 % (0.0-2.0); EOSINOPHIL % 3.5 % (0-5); HEMATOCRIT 32.9 % (42-52); MEAN CORPUSCULAR HGB 30.8 PG (27.0-31.0); MEAN CORPUSCULAR HGB CONC 32.8 G/DL (33.0-37.0); MEAN CORPUSCULAR VOLUME 94.1 FL (80.0-94.0); MEAN PLATELET VOLUME 7.7 FL (7.4-10.4); PLATELET COUNT 165 /CUMM (130-400); RBC DISTRIBUTION WIDTH 15.7 % (11.5-14.5); WHITE BLOOD CELL COUNT 6.1 /CUMM (4.8-10.8)
--- NOTE | 2017-06-16 10:46 | PN- General Surgery ---
See Addendum Subjective Subjective: Feels well. Pain controlled. Passing flatus, 2 normal BMs, last night and this morning. Tolerating liquid diet, requesting solid food. Ambulating to the bathroom. No other complaints. Objective Vital Signs and I&Os Vital Signs Date Time Temp Pulse Resp B/P B/P Pulse O2 O2 Flow FiO2 Mean Ox Delivery Rate 06/16 0550 97.9 66 20 138/94 94 Room Air 06/15 2246 98.1 65 20 122/60 95 Nasal Cannula 06/15 1600 96 Nasal 2.0L Cannula 06/15 1344 98.6 73 20 112/80 97 Nasal 2.0L Cannula 06/15 1056 Nasal 1.0L Cannula Intake & Output 06/16 1600 06/16 0800 06/16 0000 06/15 1600 06/15 0800 06/15 0000 Intake Total 840 1080 1010 200 Output Total 1125 1080 1100 400 100 Balance -285 0 -90 -200 -100 Intake, IV 494 535 0733 200 Intake, Oral 240 480 10 Number 1 1 Bowel Movements Output, 100 Gastric Drainage Output, Urine 1125 1080 1100 400 Patient 242 lb 243 lb Weight Physical Exam: Gen - NAD Cardiac - S1S2 Lungs - CTAB Abd - soft, obese, well-healed incisions, bowel sounds presents, nontender throughout Ext - no edema or calf tenderness Current Medications: Current Medications Sig/Mellisa Start time Last Medication Dose Route Stop Time Status Admin Acetaminophen 1,000 MG .STK-MED ONE 06/15 1428 DC IV 06/15 1429 Acetaminophen 1,000 MG Q6H 06/14 2044 DC 06/15 N/A 1 UNIT IV 06/15 1459 1431 Clonazepam 2 MG BID 06/16 2199 UNVr PO 06/23 2159 Dextrose/Sodium 1,000 ML .[id number] 06/14 2044 DC 06/15 Chloride IV 204 Fentanyl Citrate 100 MCG Q72H 06/14 2044 AC 06/14 TOP 2114 Heparin Sodium 5,000 UNIT Q8 06/14 2199 AC 06/16 (Porcine) SC 0540 Lorazepam 1 MG Q4P PRN 06/14 2044 DC 06/15 IV 2125 Morphine Sulfate 2 MG Q2 PRN 06/16 1041 UNVr IV Morphine Sulfate 6 MG Q4 06/15 0200 DC 06/16 IV 1012 Morphine Sulfate 8 MG Q4-6 PRN PRN 06/14 2044 DC 06/15 IV 204 Ondansetron HCl 4 MG Q8P PRN 06/14 2044 AC IV Oxycodone HCl 90 MG .[4XDAILY] 06/16 1045 UNVr PO Pantoprazole Sodium 40 MG DAILY 06/15 1000 DC 06/16 IV 1012 Patient Medication 1 ED ONE ONE 06/15 1345 DC 06/15 Teaching ED 06/15 1346 1431 Promethazine HCl 12.5 MG Q6-PRN PRN 06/14 2044 AC IV 06/22 2043 Results Last 48 Hours of Labs: Laboratory Tests 06/16 06/15 0735 0655 Chemistry Sodium (137 - 145 mmol/L) 143 142 Potassium (3.5 - 5.1 mmol/L) 4.3 4.1 Chloride (98 - 107 mmol/L) 104 105 Carbon Dioxide (22 - 30 mmol/L) 28 26 Anion Gap (5 - 16) 11 11 BUN (9 - 20 mg/dL) 11 18 Creatinine (0.7 - 1.2 mg/dL) 1.0 1.2 Estimated GFR (>60 ml/min) > 60 > 60 BUN/Creatinine Ratio (7 - 25 %) 11.0 15.0 Hematology CBC w Diff NO MAN DIFF REQ NO MAN DIFF REQ WBC (4.8 - 10.8 /CUMM) 6.1 4.6 L RBC (4.70 - 6.10 /CUMM) 3.50 L 3.40 L Hgb (14.0 - 18.0 G/DL) 10.8 L 10.5 L Hct (42 - 52 %) 32.9 L 31.5 L MCV (80.0 - 94.0 FL) 94.1 H 92.7 MCH (27.0 - 31.0 PG) 30.8 30.8 MCHC (33.0 - 37.0 G/DL) 32.8 L 33.2 RDW (11.5 - 14.5 %) 15.7 H 15.4 H Plt Count (130 - 400 /CUMM) 165 148 MPV (7.4 - 10.4 FL) 7.7 7.7 Gran % (42.2 - 75.2 %) 58.0 47.4 Lymphocytes % (20.5 - 51.1 %) 31.4 40.8 Monocytes % (1.7 - 9.3 %) 6.7 8.5 Eosinophils % (0 - 5 %) 3.5 3.0 Basophils % (0.0 - 2.0 %) 0.4 0.3 Absolute Granulocytes (1.4 - 6.5 /CUMM) 3.5 2.2 Absolute Lymphocytes (1.2 - 3.4 /CUMM) 1.9 1.9 Absolute Monocytes (0.10 - 0.60 /CUMM) 0.4 0.4 Absolute Eosinophils (0.0 - 0.7 /CUMM) 0.2 0.1 Absolute Basophils (0.0 - 0.2 /CUMM) 0 0 03/01 1554 Chemistry Sodium (137 - 145 mmol/L) 141 Potassium (3.5 - 5.1 mmol/L) 4.7 Chloride (98 - 107 mmol/L) 100 Carbon Dioxide (22 - 30 mmol/L) 24 Anion Gap (5 - 16) 17 H BUN (9 - 20 mg/dL) 19 Creatinine (0.7 - 1.2 mg/dL) 1.3 H Estimated GFR (>60 ml/min) 56 L BUN/Creatinine Ratio (7 - 25 %) 14.6 Glucose (65 - 99 mg/dL) 115 H Lactic Acid (0.7 - 2.1 mmol/L) 1.9 Calcium (8.4 - 10.2 mg/dL) 9.5 Total Bilirubin (0.2 - 1.3 mg/dL) 0.9 AST (17 - 59 U/L) 27 ALT (21 - 72 U/L) 31 Alkaline Phosphatase (< 127 U/L) 131 H Troponin I (<0.11 ng/ml) 0.05 Total Protein (6.3 - 8.2 g/dL) 8.2 Albumin (3.5 - 5.0 g/dL) 4.7 Globulin (1.9 - 4.2 gm/dL) 3.5 Albumin/Globulin Ratio (1.1 - 2.2 %) 1.3 Lipase (23 - 300 U/L) 81 Hematology CBC w Diff NO MAN DIFF REQ WBC (4.8 - 10.8 /CUMM) 8.6 RBC (4.70 - 6.10 /CUMM) 4.30 L Hgb (14.0 - 18.0 G/DL) 13.1 L Hct (42 - 52 %) 39.7 L MCV (80.0 - 94.0 FL) 92.5 MCH (27.0 - 31.0 PG) 30.4 MCHC (33.0 - 37.0 G/DL) 32.9 L RDW (11.5 - 14.5 %) 15.5 H Plt Count (130 - 400 /CUMM) 232 MPV (7.4 - 10.4 FL) 7.3 L Gran % (42.2 - 75.2 %) 60.6 Lymphocytes % (20.5 - 51.1 %) 32.0 Monocytes % (1.7 - 9.3 %) 5.5 Eosinophils % (0 - 5 %) 1.8 Basophils % (0.0 - 2.0 %) 0.1 Absolute Granulocytes (1.4 - 6.5 /CUMM) 5.2 Absolute Lymphocytes (1.2 - 3.4 /CUMM) 2.7 Absolute Monocytes (0.10 - 0.60 /CUMM) 0.5 Absolute Eosinophils (0.0 - 0.7 /CUMM) 0.2 Absolute Basophils (0.0 - 0.2 /CUMM) 0 Assessment/Plan Assessment/Plan 62 M admitted with SBO likely from adhesive disease, which has resolved with conservative managemnt Advance to low fiber diet Restart home meds GI/DVT ppx on board Encourage ambulation with walker/assistance Anticipate d/c today if tolerates diet Will d/w Dr. Mesa Core Measures Venous Thromboembolism VTE Risk Factors No risk factors No Mechanical VTE Prophylaxis d/t N/A MechProphylax Ordered No VTE Pharm Prophylaxis d/t NA PharmProphylax ordered
[2017-06-16 13:45] VITALS: BP 140/80
[2017-06-16 22:19] VITALS: BP 128/80
[2017-06-17 06:45] VITALS: BP 140/90
--- NOTE | 2017-06-17 10:17 | PN- General Surgery ---
See Addendum Subjective Subjective: PT IN BED, WITH CHRONINC BACK PAIN BUT DENIES ABDOMINAL PAIN OR NAUSEA, FEELS VERY HUNGRY. TOLERATING CLEAR LIQUIDS. HAD BM EARLY THIS MORNING. VOIDING. AMBULATED YESTERDAY. Objective Vital Signs and I&Os Vital Signs Date Time Temp Pulse Resp B/P B/P Pulse O2 O2 Flow FiO2 Mean Ox Delivery Rate 06/17 0645 98.3 65 20 140/90 95 Room Air 06/16 2219 98.6 68 20 128/80 96 Room Air 06/16 1345 97.7 83 20 140/80 98 Room Air Intake & Output 06/17 1600 06/17 0800 06/17 0000 06/16 1600 06/16 0800 06/16 0000 Intake Total 600 561 368 1563 Output Total 269 105 4817 1080 Balance 100 500 -285 0 Intake, IV 300 600 600 Intake, Oral 600 600 240 480 Number 1 Bowel Movements Output, Urine 492 973 3923 1080 Patient 242 lb Weight Physical Exam: GEN- NAD RESP- CLEAR CARDIO-RRR ABD- ND, +BS, SOFT, MILD TENDERNESS WITH DEEP PALPATION IN MID TO LEFT ABD Assessment/Plan Assessment/Plan 62YO M WITH RESOLVING SBO. STABLE ADVANCE TO FULL LIQUIDS TOLERATED ENCOURAGE AMBULATION DC IV NARCOTICS, TRANSITION TO PO PAIN MEDS ONLY DVT PPX- SQ HEPARIN REGULAR HOME MEDS Core Measures Venous Thromboembolism VTE Risk Factors No risk factors No Mechanical VTE Prophylaxis d/t N/A MechProphylax Ordered No VTE Pharm Prophylaxis d/t NA PharmProphylax ordered
[2017-06-17 13:45] VITALS: BP 122/80
[2017-06-17 22:15] VITALS: BP 140/80
[2017-06-18 06:18] VITALS: BP 120/70
--- NOTE | 2017-06-18 07:37 | Patient Discharge Instructions ---
Discharge Instructions General Discharge Information You were seen/treated for: Small bowel obstruction You had these procedures: Medical/conservative management of small bowel obstruction Watch for these problems: Increasing abdominal pain or bloating Inability to pass gas Inability to urinate or move bowels Increasing nausea or vomitting Fever greater than 101.5 Special Instructions: Advance diet as tolerated Be sure to maintain a bowel regimen that inludes a laxative and/or stool softener as pain medications are known to slow bowel function Diet Continue normal diet: Yes Recommended Diet: Low Residue Acute Coronary Syndrome Inclusion Criteria At DC or during hospital stay patient has or had the following: ACS DIAGNOSIS No Discharge Core Measures Meds if any: Prescribed or Continued at Discharge Meds if any: NOT Prescribed or Continued at Discharge Congestive Heart Failure Inclusion Criteria At DC or during hospital stay patient has or had the following: CHF DIAGNOSIS No Discharge Core Measures Meds if any: Prescribed or Continued at Discharge Meds if any: NOT Prescribed or Continued at Discharge Cerebrovascular accident Inclusion Criteria At DC or during hospital stay patient has or had the following: CVA/TIA Diagnosis No Discharge Core Measures Meds if any: Prescribed or Continued at Discharge Meds if any: NOT Prescribed or Continued at Discharge Venous thromboembolism Inclusion Criteria VTE Diagnosis No VTE Type NONE VTE Confirmed by (Test) NONE Discharge Core Measures - Per Current guidelines, there needs to be overlap - treatment for the first 5 days of Warfarin therapy. - If discharged on Warfarin prior to 5 days of - overlap therapy, the patient will need to be - assessed for post discharge needs including - *Post discharge parental anticoagulation - *Warfarin and/or parental anticoagulation education - *Follow up date to check INR post discharge At least 5 days overlap therapy as Inpatient No Meds if any: Prescribed or Continued at Discharge Note: Overlap Therapy is Warfarin and Anticoagulant Meds if any: NOT Prescribed or Continued at Discharge
--- NOTE | 2017-06-18 07:58 | PN- General Surgery ---
Subjective Subjective: Patient reporting normal bowel movement overnight, had low res diet for dinner with no additional abdominal discomfort, nausea or vomitting. Has been voiding. Denies chest pain, shortness of breath and difficulty breathing. Pain is controlled with home regimen. Objective Vital Signs and I&Os Vital Signs Date Time Temp Pulse Resp B/P B/P Pulse O2 O2 Flow FiO2 Mean Ox Delivery Rate 06/18 0618 97.9 62 20 120/70 93 Room Air 06/17 2215 98.1 65 20 140/80 95 Room Air 06/17 1600 Room Air 06/17 1345 98.3 62 20 122/80 92 Room Air Intake & Output 06/18 0800 06/18 0000 06/17 1600 06/17 0800 06/17 0000 06/16 1600 Intake Total 290 600 200 600 900 Output Total 360 400 600 500 400 Balance -70 200 -400 100 500 Intake, IV 10 300 Intake, Oral 280 600 200 600 600 Intake, 0 TPN/PPN Number 1 Bowel Movements Output, Urine 360 400 600 500 400 Physical Exam: General: Alert and oriented x3, no acute distress Cardiac: RRR, s1s2 Pulm: CTA bilaterally ABD: Non-tender, non-distened, +bs Extremities: Moves all extremities, neurovascular status intact. Bilateral calves soft and non-tender Assessment/Plan Assessment/Plan This is a 62 year old male, hospital day 4 with sbo, managed conservatively, resolved. -Continue low residue diet this am -Continue home regimen of pain medication, no iv pain meds, try to wean down narcotic use -OOB -Hep sub q, alps for dvt ppx -DC to home today Will d/w Dr. Mesa Core Measures Venous Thromboembolism VTE Risk Factors No risk factors No Mechanical VTE Prophylaxis d/t N/A MechProphylax Ordered No VTE Pharm Prophylaxis d/t NA PharmProphylax ordered
--- NOTE | 2017-06-18 18:17 | Discharge Summary ---
Visit Information Visit Dates Admission Date: 06/14/17 Discharge Date: 06/18/17 Hospital Course Course Attending Physician: Moshe KULKARNI,Michele Alvarado Primary Care Physician: Rod Bro MD Hospital Course: On the first - and symptoms suggestive of small bowel obstruction he's had it before it's related to adhesions in his case narcotic analgesics chronically and some Imodium may have played a role he had an NG tube briefly but gradually improved started moving his bowels passing gas tolerating diet gradually advanced from clears to full's to regular yesterday he also has a history of Crohn's disease but based on imaging and the labs he did not show persistent signs of any inflammation to suggest a Crohn's flare. Part of this hospital stay was adjusting IV to oral analgesics This morning he feels well abdomen soft tolerating diet no nausea no sweats no IV analgesics tolerating solid food passing gas bowel movement yesterday no diarrhea no abdominal pain like initially on admission. Vital signs stable afebrile heart rate 62 blood pressure 120/70 temperature 90.8 respirations 20 Constitutional: no acute distress no pain Eyes: sclera anicteric ENMT: moist mucous membranes Cardiovascular: S1-S2 no murmurs no peripheral edema Respiratory: clear to auscultation with normal respiratory effort and no intercostal retractions GI: abdomen soft nontender nondistended Extremities / lymphatics: free range of motion no peripheral edema Skin: no jaundice no rashes warm, nondiaphoretic Psychiatric: mood and affect are appropriate and alert and oriented to person place and time No labs today Impression is small bowel obstruction resolved nonoperatively I told to avoid Imodium if possible follow-up with GI regarding any Crohn's issues avoid large portions of high-fiber food or chewy candy avoid straining and avoid constipation dehydration discussed diet a little bit also avoiding raw fruits and vegetables a large quantities such as bowel peppers citrus or pineapple for example and is to return to our office next week or sooner if symptoms recur Allergies: Coded Allergies: prednisone (Intermediate, "CRAZY/ANXIOUS" 06/14/17) Disposition Summary Disposition Principal Diagnosis: Small bowel obstruction Additional Diagnosis: None acute Discharge Disposition: home or self care Discharge Instructions General Discharge Information Code Status: Full Code Patient's Diet: As discussed above avoid large portions of high-fiber Patient's Activity: No heavy lifting or other straining Follow-Up Instructions/Appts: Next week in the office or sooner if issues arise has recurrent symptoms Medications at Discharge Discharge Medications: Continue taking these medications: Clonazepam (Clonazepam) 2 MG TABLET 1 Tablet ORAL TWICE DAILY Qty = 60 Comments: Last Taken: 06/18/17 Time: 10AM Oxycodone HCl (Oxycodone HCl) 30 MG TABLET 90 Milligram ORAL 4XDAILY Qty = 360 Comments: Last Taken: 06/18/17 Time: 11AM Fentanyl (Fentanyl) 100 MCG/HOUR PATCH.TD72 1 Patch On the skin Every 3 days Qty = 10 Comments: Last Taken: 06/17/17 Time: 5PM Cyanocobalamin (Vitamin B-12) (Cyanocobalamin Injection) 1,000 MCG/ML VIAL 1 Milliliters INTRAMUSC ONCE A MONTH Qty = 1 Comments: DID NOT ADMINISTER IN HOSPITAL Multiple Vitamin (Multivitamins) 1 EACH TABLET 1 Tablet ORAL DAILY Comments: DID NOT ADMINISTER IN HOSPITAL Coconut Oil (Coconut Oil) (Unknown Strength) CAPSULE Unknown Dose ORAL DAILY Comments: NOT GIVEN IN HOSPITAL Turmeric Root Extract (Turmeric) (Unknown Strength) CAPSULE Unknown Dose ORAL DAILY Comments: DID NOT ADMINISTER IN HOSPITAL [place]-3/Dha/Epa/Fish Oil (Fish Oil 1,000 MG Softgel) (Unknown Strength) CAPSULE Unknown Dose ORAL DAILY Comments: DID NOT ADMINISTER IN HOSPITAL Copies To: Moshe KULKARNI,Michele Alvarado
== END 2017-06-18 13:41 | DRG 388 ==
LOC: ERH 15:28 → ERHI 20:40 → 2NA 20:40 → ENRESERV 21:29 → ENTRNSPT 22:18 → EDTRNSPTSTS 22:34 → 2NA 22:48 → CMPTRNSPT 23:01 → ENPENDDIS 06-18 08:00 → 2NA 06-18 13:41
PROVIDERS: Emergency Medicine; Physician Assistant; Physician Assistant Surgical
DX: K56.50 Intestinal adhesions [bands], unspecified as to partial versus complete obstruction (principal); J18.9 Pneumonia, unspecified organism; Z94.84 Stem cells transplant status; K50.90 Crohn's disease, unspecified, without complications; F41.9 Anxiety disorder, unspecified; Z90.49 Acquired absence of other specified parts of digestive tract; Z98.1 Arthrodesis status; Z96.642 Presence of left artificial hip joint; Z88.8 Allergy status to other drugs, medicaments and biological substances; I10 Essential (primary) hypertension; G47.33 Obstructive sleep apnea (adult) (pediatric); M54.9 Dorsalgia, unspecified; K27.7 Chronic peptic ulcer, site unspecified, without hemorrhage or perforation; Z85.72 Personal history of non-Hodgkin lymphomas; Z92.21 Personal history of antineoplastic chemotherapy; Z79.891 Long term (current) use of opiate analgesic; M21.372 Foot drop, left foot
CPT/HCPCS: 2NASP; 36592; 71045; 74021; 74176; 82436; 93005; 93010; 96374; 96375; J0131; J1644; J2405